=== PATIENT | female | born 1960 ===

== ENCOUNTER 2018-11-13 12:23 | Emergency (ER) | payer OTHER ==
[2018-11-13 12:26] VITALS: BMI 22.6
[2018-11-13 12:30] VITALS: RESP 20
[2018-11-13 13:33] LABS: SQUAMOUS EPITHIAL 9 /hpf (0-5); URINE BILIRUBIN NEGATIVE (NEGATIVE); URINE BLOOD 1+ (NEGATIVE); URINE CALCIUM OXALATE CRYSTALS OCC /hpf (<OCC); URINE CLARITY Hazy (Clear); URINE COLOR Yellow (YELLOW); URINE GLUCOSE (UA) NORMAL (Normal); URINE LEUKOCYTE ESTERASE 2+ Leu/uL (Negative); URINE PROTEIN NEGATIVE (NEGATIVE)
[2018-11-13] MEDS ORDERED: Sodium Chloride 0.9% 1,000 ML IV STA (13:44)
--- NOTE | 2018-11-13 14:16 | C.PDOC ---
History Of Present Illness 58 year old female presents to ED with complaint of right flank pain, fever, and chills for the past 2 days. She states that this is not the first time that this has happened to her and her doctor usually tests her for kidney infection. Patient's PMD told her to come to the ER. Patient denies dysuria, runny nose, congestion, and cough. Time Seen by Provider: 11/13/18 12:56 Chief Complaint (Nursing): Flu-like Symptoms History Per: Patient History/Exam Limitations: no limitations Onset/Duration Of Symptoms: Days (2) Current Symptoms Are (Timing): Still Present Location Of Pain: Other (right flank) Sick Contacts (Context): None Associated Symptoms: Fever, Chills. denies: Sore Throat, Cough, Sputum, Sinus Drainage, Nasal Congestion Past Medical History Reviewed: Historical Data, Nursing Documentation, Vital Signs Vital Signs: Last Vital Signs Temp 98.7 F 11/13/18 12:25 Pulse 106 H 11/13/18 12:25 Resp 20 11/13/18 12:25 BP 108/76 11/13/18 12:25 Pulse Ox 97 11/13/18 12:25 - Medical History PMH: Colonic Polyps, Depression, Diabetes, HTN, Hypercholesterolemia, Schizophrenia Denies: Hepatitis, HIV, Chronic Kidney Disease, Seizures, Sexually Transmitted Disease Surgical History: No Surg Hx - [facility] Procedures ENDOSC POLYPECTOMY OF LG INTEST (01/14/14) Family History: States: Unknown Family Hx - Social History Hx Alcohol Use: Yes Hx Substance Use: No - Immunization History Hx Tetanus Toxoid Vaccination: No Hx Influenza Vaccination: Yes Hx Pneumococcal Vaccination: No Review Of Systems Constitutional: Positive for: Fever, Chills. Negative for: Weakness ENT: Negative for: Nose Congestion Respiratory: Negative for: Cough, Sputum Gastrointestinal: Positive for: Abdominal Pain (right flank pain ). Negative for: Nausea, Vomiting, Diarrhea Genitourinary: Negative for: Dysuria, Hematuria Physical Exam - Physical Exam Appears: No Acute Distress, Other (non-febrile) Skin: Normal Color, Warm, Dry Head: Atraumatic, Normacephalic Neck: Normal ROM, Supple Chest: Symmetrical, No Deformity Cardiovascular: Rhythm Regular, No Murmur Respiratory: No Accessory Muscle Use, No Rales, No Rhonchi, No Wheezing Gastrointestinal/Abdominal: Soft, No Tenderness Back: CVA Tenderness (mild right CVA tenderness) Extremity: Capillary Refill (<2 seconds) Neurological/Psych: Oriented x3, Normal Speech, Normal Cognition ED Course And Treatment - Laboratory Results Result Diagrams: 11/13/18 14:11 11/13/18 14:11 Lab Results: Urine Color Yellow (YELLOW) 11/13/18 13:14 Urine Clarity Hazy (Clear) 11/13/18 13:14 Urine pH 5.0 (5.0-8.0) 11/13/18 13:14 Ur Specific [place] 1.020 (1.003-1.030) 11/13/18 13:14 Urine Protein Negative mg/dL (NEGATIVE) 11/13/18 13:14 Urine Glucose (UA) Normal mg/dL (Normal) 11/13/18 13:14 Urine Ketones Negative mg/dL (NEGATIVE) 11/13/18 13:14 Urine Blood 1+ (NEGATIVE) H 11/13/18 13:14 Urine Nitrate Negative (NEGATIVE) 11/13/18 13:14 Urine Bilirubin Negative (NEGATIVE) 11/13/18 13:14 Urine Urobilinogen 4.0 mg/dL (0.2-1.0) H 11/13/18 13:14 Ur Leukocyte Esterase 2+ Beni/uL (Negative) H 11/13/18 13:14 Urine WBC (Auto) 10 /hpf (0-5) H 11/13/18 13:14 Urine RBC (Auto) 12 /hpf (0-3) H 11/13/18 13:14 Ur Squamous Epith Cells 9 /hpf (0-5) H 11/13/18 13:14 Calcium Oxalate Crystal Occ /hpf (<OCC) H 11/13/18 13:14 O2 Sat by Pulse Oximetry: 97 (in RA) - CT Scan/US Abdomen/Pelvis CT Other Rad Studies (CT/US): Interpreted By Me, Read By Radiologist CT/US Interpretation: Accession No. : [id number]. Patient Name / ID : JOCY COVINGTON / [id number]. Exam Date : 11/13/2018 14:14:12 ( Approved ). Study Comment : Sex / Age : F / 58Y. Creator : Jennifer Mortensen. Dictator : Griffin Dick MD. Public Health Registrar : Hostess Cashier : Griffin Dick MD. Appr over2 : Report Date : 11/13/2018 14:33:44. My Comment : . This report is currently processing and HAS NOT BEEN OFFICIALLY SIGNED BY THE PHYSICIAN - ESTIMATED TIME OF APPROVAL IS 11/13/2018 14:59. Date of service: 11/13/2018. PROCEDURE: CT Abdomen and Pelvis without intravenous contrast. HISTORY: Pain in the right flank, fever. COMPARISON: None. TECHNIQUE: Technique. Contrast dose: Radiation dose: Total exam DLP = 355.3 mGy-cm. This CT exam was performed using one or more of the following dose reduction techniques: Automated exposure control, adjustment of the mA and/or kV according to patient size, and/or use of iterative reconstruction technique. FINDINGS: LOWER THORAX: Unremarkable. LIVER: Unremarkable. No gross lesion or ductal dilatation. GALLBLADDER AND BILE DUCTS: Unremarkable. PANCREAS: Unremarkable. No gross lesion or ductal dilatation. SPLEEN: Unremarkable. ADRENALS: Unremarkable. No mass. KIDNEYS AND URETERS: Unremarkable. No hydronephrosis. No solid mass. VASCULATURE: Unremarkable. No aortic aneurysm. No aortic atherosclerotic calcification or mural plaque present. BOWEL: Unremarkable. No obstruction. No gross mural thickening. APPENDIX: Unremarkable. Normal appendix. PERITONEUM: Unremarkable. No free fluid. No free air. LYMPH NODES: Unremarkable. No enlarged lymph nodes. BLADDER: Unremarkable. REPRODUCTIVE: Unremarkable. BONES: No acute fracture. OTHER FINDINGS: None. IMPRESSION: Unremarkable non contrast enhanced CT of the abdomen and pelvis. Progress Note: Abdomen/Pelvis CT ordered for patient. Labs ordered with CBC, CMP, blood culture, urine culture, and UA. Patient given IV fluids. - Physician Consult Information Physician Contacted: Saleem Garcia Outcome Of Conversation: recommended to d/c patient home with f/u in his office in 1-2 days Disposition - Disposition Referrals: Saleem Garcia MD [Medical Doctor] - Disposition: HOME/ ROUTINE Disposition Time: 17:04 Condition: STABLE Additional Instructions: Follow up with PMD within 1-2 days. Return to ED if feel worse. Prescriptions: Nitrofurantoin Macrocrystals [Macrobid] 1 cap PO BID #14 cap Instructions: Urinary Tract Infection, Adult (DC) Forms: [employer] ([place]) - Clinical Impression Clinical Impression: UTI (urinary tract infection) - PA / TELEPHONE LINES REPAIRER / Resident Statement MD/DO has reviewed & agrees with the documentation as recorded. (Yen Brewer) - Scribe Statement The provider has reviewed the documentation as recorded by the Scribe (Yen Cohen) All medical record entries made by the Scribe were at my direction and personally dictated by me. I have reviewed the chart and agree that the record accurately reflects my personal performance of the history, physical exam, medical decision making, and the department course for this patient. I have also personally directed, reviewed, and agree with the discharge instructions and disposition.
[2018-11-13 14:17] LABS: BASO % 0.3 % (0.0-2.0); EOS % 0.1 % (0.0-4.0); LYMPH # 0.9 K/uL (1.0-4.3); LYMPH % 22.3 % (20.0-40.0); MEAN CELL VOLUME 85.3 fL (81.0-99.0); MEAN CORPUSCULAR HEMOGLOBIN 29.8 pg (27.0-31.0); MEAN CORPUSCULAR HGB CONC 34.9 g/dL (33.0-37.0); MEAN PLATELET VOLUME 7.7 fL (7.2-11.7); MONO # 0.4 K/uL (0.0-0.8); MONO % 9.4 % (0.0-10.0); NEUT # 2.7 K/uL (1.8-7.0); NEUT % 67.9 % (50.0-75.0); RBC 4.71 Mil/uL (3.80-5.20); RED CELL DISTRIBUTION WIDTH 13.9 % (11.5-14.5); WHITE BLOOD COUNT 3.9 K/uL (4.8-10.8)
[2018-11-13 14:29] LABS: ALB/GLOB RATIO 1.1 (1.0-2.1); ALBUMIN 4.5 g/dL (3.5-5.0); ALT/SGPT 23 U/L (9-52); AST/SGOT 26 U/L (14-36); BLOOD UREA NITROGEN 13 mg/dL (7-17); CALCIUM 9.5 mg/dl (8.6-10.4); GFR NON-AFRICAN AMERICAN > 60; LIPASE 70 U/L (23-300)
--- NOTE | 2018-11-13 14:58 | CT ---
Date of service: 11/13/2018 PROCEDURE: CT Abdomen and Pelvis without intravenous contrast HISTORY: Pain in the right flank, fever COMPARISON: None. TECHNIQUE: Technique. Contrast dose: Radiation dose: Total exam DLP = 355.3 mGy-cm. This CT exam was performed using one or more of the following dose reduction techniques: Automated exposure control, adjustment of the mA and/or kV according to patient size, and/or use of iterative reconstruction technique. FINDINGS: LOWER THORAX: Unremarkable. LIVER: Unremarkable. No gross lesion or ductal dilatation. GALLBLADDER AND BILE DUCTS: Unremarkable. PANCREAS: Unremarkable. No gross lesion or ductal dilatation. SPLEEN: Unremarkable. ADRENALS: Unremarkable. No mass. KIDNEYS AND URETERS: Unremarkable. No hydronephrosis. No solid mass. VASCULATURE: Unremarkable. No aortic aneurysm. No aortic atherosclerotic calcification or mural plaque present. BOWEL: Unremarkable. No obstruction. No gross mural thickening. APPENDIX: Unremarkable. Normal appendix. PERITONEUM: Unremarkable. No free fluid. No free air. LYMPH NODES: Unremarkable. No enlarged lymph nodes. BLADDER: Unremarkable. REPRODUCTIVE: Unremarkable. BONES: No acute fracture. OTHER FINDINGS: None. IMPRESSION: Unremarkable non contrast enhanced CT of the abdomen and pelvis.
[2018-11-13 15:31] VITALS: TEMP 99.7
[2018-11-13 17:17] VITALS: BP 110/65; PULSE 99
[2018-11-13 18:08] VITALS: O2SAT 97
== END 2018-11-13 17:24 | disposition home or self-care (01) ==
LOC: C.ER 12:23
DX: N39.0 Urinary tract infection, site not specified (principal)
CPT/HCPCS: 74176; 80053; 81001; 83690; 85025; 87040; 87086; 87149; 87181; 87205; 96361; 96365; 99285; J0696; J7030